=== PATIENT | female | born 1990 | race Caucasian/White ===

== ENCOUNTER 2020-01-31 13:33 | Emergency (ER) | payer MEDICARE, MEDICAID, OTHER, SELFPAY ==
[2020-01-31 13:39] VITALS: BP 112/63; PULSE 97; TEMP 36.4; O2SAT 98
--- NOTE | 2020-01-31 14:23 | ED_ITS ---
HPI - URI/Sore Throat <TOÑO Joyner - Last Filed: 01/31/20 18:31> General Chief Complaint: Upper Respiratory Symptoms Stated Complaint: suspects STI Time Seen by Provider: 01/31/20 13:55 Source: patient Mode of arrival: Ambulatory Limitations: no limitations History of Present Illness HPI Narrative: This is a 29-year-old female, nonsmoker, who has history of bipolar presents to ED with chief complain of sore and itchy throat and vaginal itchiness for several days. Patient reports she had sexual encounter vaginally and orally with a new male partner a week ago before the symptoms started and is concerned for STIs. Patient denies ulcers, unusual vaginal discharge, abdominal pain or urinary symptoms. Patient denies fever, chills, nausea or vomiting. She states occasional productive cough and mild short of breath. Related Data Previous Rx's Medication Instructions Recorded fluconazole [Diflucan] 150 mg PO DAILY #1 tab 01/31/20 Allergies Allergy/AdvReac Type Severity Reaction Status Date / Time risperidone [From Risperdal] Allergy Verified 01/31/20 15:22 Review of Systems <TOÑO Joyner - Last Filed: 01/31/20 18:31> Review of Systems Narrative: General: Denies fever, chills, fatigue, malaise, sweats. HEENT: See HPI Respiratory: HPI Cardiovascular: Denies chest pain, palpitations, orthopnea, edema. Gastrointestinal: Denies nausea, vomiting, abdominal pain, diarrhea, constipation, melena. : See HPI Musculoskeletal: Denies weakness, joint pain or bony pain. Skin: Denies rash, skin lesions, or other. Neurologic: Denies weakness, headache, numbness, change in speech, confusion, seizures, incoordination. Psychiatric: No concerning psychosocial issues. 12-point review of systems is negative except for those stated above. Patient History <TOÑO Joyner - Last Filed: 01/31/20 18:31> Social History Smoking Status: Never smoker Smoking Status: Never smoker alcohol intake frequency: 0-2 drinks per day Substance Use Type: does not use Exam <TOÑO Joyner - Last Filed: 01/31/20 18:31> Narrative Exam Narrative: GEN: Alert, oriented x 3, well appearing and nourished, and in no acute distress. Head: Normal cephalic, atraumatic. No scalp or temporal tenderness, palpable mass or rash. EYES: Pupils are equal, round, and reactive to light and accommodation. Extraocular muscles are intact bilaterally. There is no subconjunctival hemorrhage, exudate and sclera non-icteric. ENT: Bilateral auditory canals and tympanic membranes clear. Hearing grossly intact. Nose without bleeding, purulent discharge or deviation. Facial sinuses nontender to palpate. Mucous membrane moist, no mucosal lesion. Throat with mild erythema, no tonsillar hypertrophy or exudate. Uvula in midline, airway patent. Neck: Trachea in midline. No JVD, non-tender without lymphadenopathy. No masses or thyroid megaly. Supple, non-tender and no meningeal signs. CARDIAC: Normal regular rate and rhythm without murmurs, gallops, or rubs. No chest wall tenderness. No peripheral edema, cyanosis or pallor. Capillary refill is less than 2 seconds. RESPIRATORY: Lungs are clear to auscultate bilaterally. No cough, wheezes, rales, or rhonchi. No stridor, respiratory distress, increase work of breathing, or accessary muscle used. ABD: Abdomen soft, nontender and non-distended. No guarding or rebound tenderness to palpate. Bowel sounds are normal in all 4 quadrants. There is no palpable masses or organomegaly. EXT: Full painless ROM of all extremities with no loss of sensation, strength, effusion or edema. SKIN: Warm, dry, normal color for patient. No erythema, lesions or rash over visible areas. BACK: Nontender without deformity or crepitance. No flank tenderness. NEUROLOGICAL: Alert and oriented to place, time and person. Sensation and motor function intact bilaterally. No facial droops, dysphasia. PSYCHIATRIC: Good judgement and reason, without hallucinations, abnormal affect or abnormal behaviors during the examination. Patient is not suicidal. Initial Vital Signs Initial Vital Signs: Vital Signs Temperature 97.6 F 01/31/20 13:39 Pulse Rate 97 H 01/31/20 13:39 Blood Pressure 112/63 01/31/20 13:39 Pulse Oximetry 98 01/31/20 13:39 External Female Exam: normal external appearance Speculum Exam - Vagina: normal appearance of the vagina and normal vaginal discharge Speculum Exam - Cervix: normal appearance of the cervix Bimanual Exam- Vagina & Uterus: normal bimanual exam, non-tender, no cervical motion tenderness and not enlarged Bimanual Exam- Adnexa, other: normal adnexae and no masses <Shayy Maria DO - Last Filed: 02/01/20 09:20> Initial Vital Signs Initial Vital Signs: Vital Signs Temperature 97.6 F 01/31/20 13:39 Pulse Rate 97 H 01/31/20 13:39 Blood Pressure 112/63 01/31/20 13:39 Pulse Oximetry 98 01/31/20 13:39 Scores <[facility] - Last Filed: 01/31/20 18:31> GCS Wero coma scale eye opening: Spontaneous Bushnell coma scale verbal response: Orientated Bushnell coma scale motor response: Obey commands Bushnell coma scale total score: 15 Course <John BrightCARLOS CabezasP - Last Filed: 01/31/20 18:31> Orders Ordered: Discontinued Medications Acetaminophen (Tylenol) 650 mg PO NOW ONE Stop: 01/31/20 14:22 Ibuprofen (Advil) 400 mg PO NOW ONE Stop: 01/31/20 14:22 Vital Signs Vital signs: Vital Signs - 8 hr 01/31/20 13:39 01/31/20 16:57 Temperature 97.6 F Pulse Rate 97 H 79 Respiratory Rate 16 Blood Pressure 112/63 113/57 L Pulse Oximetry 98 99 <Shayy Maria DO - Last Filed: 02/01/20 09:20> Orders Ordered: Discontinued Medications Acetaminophen (Tylenol) 650 mg PO NOW ONE Stop: 01/31/20 14:22 Ibuprofen (Advil) 400 mg PO NOW ONE Stop: 01/31/20 14:22 Vital Signs Vital signs: Vital Signs - 8 hr 01/31/20 13:39 01/31/20 16:57 Temperature 97.6 F Pulse Rate 97 H 79 Respiratory Rate 16 Blood Pressure 112/63 113/57 L Pulse Oximetry 98 99 MDM - URI/Sore Throat <[facility] GilliamP - Last Filed: 01/31/20 18:31> Differential Diagnosis Differential diagnosis: Likely upper respiratory infection, pharyngitis and other (STIs, bacterial vaginosis, yeast infection) Medical Records Attestation: I reviewed the patient's medical records. Lab Data Attestation: I reviewed the patient's lab results. Labs: Lab Results 01/31/20 01/31/20 Range/Units 14:15 14:45 Urine Color Yellow Urine Appearance Clear Urine pH 7.5 (4.5-8.0) Ur Specific [place] <=1.005 (1.000-1.035) Urine Protein Negative (Negative) Urine Glucose (UA) Negative (Negative) g/dL Urine Ketones Negative (NEGATIVE) Urine Occult Blood 1+ H (Negative) Urine Nitrate Negative (Negative) Urine Bilirubin Negative (NEGATIVE) Urine Urobilinogen 0.2 (0.2) E.U./dL Ur Leukocyte Esterase Negative (NEGATIVE) Urine RBC 0-1/hpf (0-5/HPF) Urine WBC None seen (0-5/HPF) Ur Squamous Epith Cells None seen (0-5/HPF) Urine Bacteria Few (2-10) H (None) Ur Culture Indicated? Cult not indicated COVID-19 PCR Negative (Negative) Point of Care Testing Test Results Negative Rapid Strep A Negative Urine Dip Bedside Urine Glucose Negative Bedside Urine Bilirubin - Negative Bedside Urine Ketone - Negative Urine Specific [place] 1.005 Bedside Urine Occult Blood + Bedside Urine pH 7.5 Bedside Urine Protein - Negative Bedside Urine Urobilinogen +/- 1mg Bedside Urine Nitrite - Negative Bedside Urine Leukocytes - Negative Esterase MDM Narrative Medical decision making narrative: This is a 29-year-old female who presents to ED with chief complain of sore throat, occasional productive cough and vaginal itching after she had an encounter with a new male sexual partner with vaginally and orally. Patient has hoarse voice. Physical exam is unremarkable except mildly redness to posterior pharynx without swelling or action states. Pelvic exam was unremarkable with small amount of thick white mucousy patient discharge. Nose cervical motion tenderness or adnexal appreciated. Strep A throat test was negative. Urine appears to be clean without indications for infection. Urine test was negative. GC chlamydia PCR urine test for genital, pharynx, throat culture, and genital culture pending. Wet prep shows small amount of yeast and patient was discharged to home with Diflucan. She was informed that should be receiving a phone call from us if requires medications to treat infections. Return precautions were discussed with patient and Patient verbalized understanding and in agreement with the treatment plan. Lab called and I was informed that Urine PCR GC chlamydia cannot be done today due to testing agent ran out and is being sent out. <Shayy Candace, - Last Filed: 02/01/20 09:20> Lab Data Labs: Lab Results 01/31/20 01/31/20 Range/Units 14:15 14:45 Urine Color Yellow Urine Appearance Clear Urine pH 7.5 (4.5-8.0) Ur Specific [place] <=1.005 (1.000-1.035) Urine Protein Negative (Negative) Urine Glucose (UA) Negative (Negative) g/dL Urine Ketones Negative (NEGATIVE) Urine Occult Blood 1+ H (Negative) Urine Nitrate Negative (Negative) Urine Bilirubin Negative (NEGATIVE) Urine Urobilinogen 0.2 (0.2) E.U./dL Ur Leukocyte Esterase Negative (NEGATIVE) Urine RBC 0-1/hpf (0-5/HPF) Urine WBC None seen (0-5/HPF) Ur Squamous Epith Cells None seen (0-5/HPF) Urine Bacteria Few (2-10) H (None) Ur Culture Indicated? Cult not indicated COVID-19 PCR Negative (Negative) Point of Care Testing Test Results Negative Rapid Strep A Negative Urine Dip Bedside Urine Glucose Negative Bedside Urine Bilirubin - Negative Bedside Urine Ketone - Negative Urine Specific [place] 1.005 Bedside Urine Occult Blood + Bedside Urine pH 7.5 Bedside Urine Protein - Negative Bedside Urine Urobilinogen +/- 1mg Bedside Urine Nitrite - Negative Bedside Urine Leukocytes - Negative Esterase Discharge Plan Departure Patient Disposition: Home Clinical Impression: Vaginal yeast infection Pharyngitis Qualifiers: Pharyngitis/tonsillitis etiology: unspecified etiology Qualified Code(s): J02.9 - Acute pharyngitis, unspecified Discharge Date/Time: 01/31/20 17:21 Instructions: DI for Vaginal Yeast Infection, DI for Viral Pharyngitis Activity Restrictions/Additional Instructions: You have been diagnosed with [pharyngitis and vaginal itching likely from mild [place] infection. Strep throat was negative. Urine test was negative for infection and . GC/chlamydia, wet prep, genital culture, throat cultures are pending. Covid test today was negative. You will receive a phone call from us if you require an antibiotic medication treatment.]. What to do: *Take your medications as directed. You can take [id number] Tylenol and or Motrin as needed for discomfort. Warm salt water gargle several times a day will help with discomfort. You can also take throat lozenges as needed for pain. You can take Diflucan 1 tab and may repeat in 3 days symptoms not resolved. *Follow up with your primary care provider in 2-3 days, call for an appointment. Let them know you were seen in the ED and that we asked you to be seen in follow up. *Return to ED if you have any new, worsening, or concerning symptoms, such as [significant swelling to her throat, worsening pain, high fever, difficulty swallowing, chest pain, breathing difficulty, unable to tolerate fluids or any acute concerns]. Prescriptions: New fluconazole [Diflucan] 150 mg tablet 150 mg PO DAILY Qty: 1 RF: 1 Referrals: [facility] [Outside] <Shayy Maria, DO - Last Filed: 02/01/20 09:20> Cosign ED Attending Kathyature Attestation: I was immediately available in the department for consultation. Documentation has been reviewed. I agree with assessment and plan.
[2020-01-31 14:30] LABS: WBC Urine None Seen (0-5/HPF)
[2020-01-31 14:33] LABS: Appearance Urine UA CLEAR; Bilirubin Urine UA NEGATIVE (NEGATIVE); Color Urine UA YELLOW; Glucose Urine UA NEGATIVE (Negative); Ketones Urine UA NEGATIVE (NEGATIVE); Leukocyte Esterase Urine UA NEGATIVE (NEGATIVE); Nitrite Urine UA NEGATIVE (Negative); Occult Blood Urine UA 1+ (Negative); Protein Urine UA NEGATIVE (Negative); Specific Gravity Urine UA <=1.005 (1.000-1.035); Urobilinogen Urine UA 0.2 E.U./dL (0.2)
[2020-01-31 14:39] LABS: pH Urine UA 7.5 (4.5-8.0)
[2020-01-31 14:42] LABS: RBC Urine 0-1/HPF (0-5/HPF); Squamous Epithelial Cell Urine None Seen (0-5/HPF)
[2020-01-31 14:43] LABS: Bacteria Urine Few (2-10); Culture Indicated Urine Cult Not Indicated
[2020-01-31 15:05] LABS: COVID19 -Nasal RAPID Negative (Negative)
--- NOTE | 2020-01-31 16:05 | PC.NURSE ---
Provider notified that pt is ready for pelvic.
[2020-01-31 16:57] VITALS: BP 113/57; PULSE 79; RESP 16; O2SAT 99
[2020-02-01 22:08] LABS: C.trachomatis RNA Negative (Negative); N.gonorrhoeae RNA Negative (Negative)
== END 2020-01-31 17:21 | disposition home or self-care (01) ==
PROVIDERS: Emergency Provider Nurse Practitioner Family
DX: J02.9 Acute pharyngitis, unspecified (principal); B37.9 Candidiasis, unspecified
CPT/HCPCS: 81001; 81003; 81025; 87070; 87077; 87205; 87210; 87491; 87591; 87635; 87880; 99283

== ENCOUNTER 2020-02-03 02:32 | Emergency (ER) | payer MEDICARE, MEDICAID, SELFPAY ==
[2020-02-03 02:35] VITALS: BP 113/60; PULSE 90; RESP 18; TEMP 36.6; O2SAT 99
--- NOTE | 2020-02-03 02:59 | ED_ITS ---
HPI - Allergic Reaction General Chief complaint: Allergic Reaction Stated complaint: rash on right arm, poss allergic reaction to meds Time Seen by Provider: 02/03/20 02:35 Source: patient Mode of arrival: Ambulatory Limitations: no limitations History of Present Illness HPI narrative: 29-year-old female who was seen here in the emergency department approximately 48 hours ago for pharyngitis and vaginal discharge. Please see the note from that visit for more detailed description. She was discharged home with prescription for Diflucan. She took the Diflucan approximately 24 hours ago. She reports that her sore throat is only slightly improved. She is still having vaginal discharge and within the past 6 hours developed a rash on the outside of her right upper arm. No fevers. She states the rash is not itchy. Other than the Diflucan has no other new exposures. Has not tried anything for the rash prior to arrival. The reason she came to the emergency department was because of the rash not because of the continued very angio of and vaginal symptoms. Related Data Previous Rx's Medication Instructions Recorded fluconazole [Diflucan] 150 mg PO DAILY #1 tab 01/31/20 Allergies Allergy/AdvReac Type Severity Reaction Status Date / Time risperidone [From Risperdal] Allergy Verified 01/31/20 15:22 Review of Systems Constitutional Constitutional: Denies fever(s) and Denies headache(s) Eyes Eyes: Denies change in vision ENT Ears, Nose, Mouth, and Throat: Denies headache(s), Denies sinus pain and Reports sore throat Cardiovascular Cardiovascular: Denies chest pain and Denies dyspnea Respiratory Respiratory: Denies dyspnea Gastrointestinal Gastrointestinal: Denies abdominal pain Genitourinary Genitourinary: Denies dysuria Genitourinary: Denies dysuria, Reports vaginal discharge and Reports vaginal pruritus Musculoskeletal Musculoskeletal: Denies arthralgias, Denies back pain and Denies myalgias Integumentary/Breasts Skin/Breast: Reports rash Neurologic Neurologic: Denies behavioral changes and Denies headache(s) Psychiatric Psychiatric: Denies behavioral changes Hematologic/Lymphatic Hematologic/Lymphatic: Denies easy bleeding and Denies easy bruising Allergic/Immunologic Allergic/Immunologic: Denies urticaria Patient History Medical History Bipolar disorder (Inactive) Chlamydia (Inactive) Vaginal yeast infection (Inactive) Social History Smoking Status: Never smoker Smoking Status: Never smoker alcohol intake frequency: 0-2 drinks per day Substance Use Type: does not use Exam Initial Vital Signs Initial Vital Signs: Vital Signs Temperature 97.9 F 02/03/20 02:35 Pulse Rate 90 02/03/20 02:35 Respiratory Rate 18 02/03/20 02:35 Blood Pressure 113/60 02/03/20 02:35 Pulse Oximetry 99 02/03/20 02:35 Const General: cooperative and comfortable Limitations: mental status not altered HENMT Head: normal to inspection and normocephalic Face and sinus: normal facial exam Mouth: oral mucosae normal Teeth and gingiva: dentition normal Throat: posterior oropharynx normal Neck Lymphatic: lymphadenopathy Resp Effort & Inspection: normal respiratory effort Cardio Rate: regular rate Skin Other: Patient with a well-defined area approximately the size of her palm to the proximal 1/3 of the lateral aspect of the right upper arm. Macular papular in nature. No ulcerations. No surrounding erythema. No vesicles. No pustules. Neuro General: patient alert and patient awake Cognition: normal cognition Speech: speech normal Extrem General: normal to inspection and capillary refill normal Psych Appearance: grossly normal and well kempt Course Orders Ordered: ED Orders 02/03/20 03:02 Test Urine Stat Urine Culture Stat 02/03/20 03:12 Chlamydia Gonorrhea PCR -URINE Stat Discontinued Medications Azithromycin (Zithromax) 1,000 mg PO NOW ONE Stop: 02/03/20 03:04 Vital Signs Vital signs: Vital Signs - 8 hr 02/03/20 02:35 Temperature 97.9 F Pulse Rate 90 Respiratory Rate 18 Blood Pressure 113/60 Pulse Oximetry 99 MDM - Allergic Reaction Medical Records Attestation: I reviewed the patient's medical records. Lab Data Attestation: I reviewed the patient's lab results. Labs: Lab Results 02/03/20 Range/Units 03:02 Urine Test Negative (Negative) MDM Narrative Medical decision making narrative: Review the patient's record from her prior visit shows that she was positive for yeast. Negative for Trichomonas. The throat culture was negative for gonorrhea and chlamydia however the urine PCR test for gonorrhea and chlamydia was not performed/canceled. I discussed this with the lab. Unsure our why this was canceled. The vaginal culture still pending. I discussed all this with the patient. Patient states that she feels like that she has chlamydia. She states she has had this in the past. Patient did provide us with another urine sample today. We will proceed with the urine PCR for gonorrhea and chlamydia however we will presumptively treat her for chlamydia. Unsure the exact etiology of the rash on her right upper extremity however does not have any specific pattern that would point towards a specific etiology. It does not have the pattern consistent with syphilis. Patient thinks that it was an allergic reaction to the Diflucan however I am not convi nced of this. Patient has no signs of anaphylaxis. We will treat this conservatively with topical steroid creams. Patient had a fairly extensive workup to include a pelvic exam just 48 hours ago. I feel that we can hold on that for now. She describes no other lesions that have developed over this time. Patient is afebrile. Can swallow and breathe without problems. Patient was informed that she should abstain from sexual intercourse and she should inform her partner over decisions today. She expressed understanding and agreement. Discharge Plan Departure Patient Disposition: Home Clinical Impression: Rash, Chlamydia Instructions: Informing Partners of STI Patients Reduces Ongoing and Recurrent Sexually T, How to Detect and Treat STDs, DI for Rash Activity Restrictions/Additional Instructions: It is important that you abstain from sexual intercourse for the next 7 days. I do recommend that you inform her sexual partner of our decision to treat today and advise that he be tested. Contact her primary provider for follow-up. Return to the emergency department for any new or worsening symptoms. Prescriptions: No Action fluconazole [Diflucan] 150 mg tablet 150 mg PO DAILY Qty: 1 RF: 1
[2020-02-03] MEDS: AZITHROMYCIN 250 MG TABLET 1000 MG PO (03:15)
[2020-02-03 03:19] LABS: Pregnancy Test Urine Negative (Negative)
[2020-02-03 03:35] VITALS: BP 115/81; PULSE 69; RESP 14; O2SAT 100
== END 2020-02-03 03:35 | disposition home or self-care (01) ==
PROVIDERS: Emergency Provider Emergency Medicine
DX: A56.02 Chlamydial vulvovaginitis (principal); R21 Rash and other nonspecific skin eruption
CPT/HCPCS: 81025; 87086; 87491; 87591; 99283

== ENCOUNTER → 2021-03-05 13:49 | Outpatient (CLI) | payer MEDICARE, MEDICAID, SELFPAY ==
[2021-03-05 14:58] LABS: COVID19 -Nasal RAPID Negative (Negative)
== END ==
PROVIDERS: Referring Provider Physician Assistant; Visit Provider Physician Assistant
DX: Z20.822 Contact with and (suspected) exposure to COVID-19 (principal)
CPT/HCPCS: 87635